=== PATIENT | male | born 1995 | race Caucasian/White ===

== ENCOUNTER 2021-07-15 16:34 | Emergency (ER) | payer BC, OTHER ==
[2021-07-15 16:47] VITALS: BP 128/79; PULSE 75; O2SAT 98
[2021-07-15] MEDS ORDERED: TORAdol 30 mg Injection IM ONE (16:51)
[2021-07-15] MEDS ORDERED: TORAdol 30 mg Injection ONE (16:54)
--- NOTE | 2021-07-15 16:57 | ERPHSYRPT ---
- History of Present Illness Source: patient Exam Limitations: no limitations Patient Subjective Stated Complaint: Pt c/o of toothache pain at his right lower wisdom tooth, states he had an abcsess there last year and was here for the same thing Triage Nursing Assessment: Pt brought self to the ER, vitals wnl, rates mouth pain as 10/24, pt states he was here last year for the same problem but did not have the tooth fixed or removed after the abscess went down, no redness seen, doesn't appear to be in any distress Physician History: 25 yo wm w dental pain x 3 days. Pt denies trauma/fever. Pt states that he had similar pain w impacter 3rd molar 1 year ago but did not f/u for extraction. Timing/Duration: days (3 days) Severity: mild ENT Location: dental Prearrival Treatment: over the counter meds Modifying Factors: Improves With: other (Chewing) Associated Symptoms: facial pain/swelling, jaw pain, tooth pain, No ear pain (R), No ear pain (L), No cough, No fever, No chills, No change in hearing, No dizziness, No drooling, No ear drainage, No headache, No hearing loss, No malaise, No motion sickness, No nasal congestion/drainage, No nasal foreign body, No neck pain, No poor fluid intake, No poor solids intake, No ringing of ears, No swollen glands, No sinus infection, No sore throat, No difficulty swallowing, No voice change Allergies/Adverse Reactions: amoxicillin Allergy (Verified 07/15/21 16:47) Hx Tetanus, Diphtheria Vaccination/Date Given: (unknown) Hx Influenza Vaccination/Date Given: No Hx Pneumococcal Vaccination/Date Given: No Travel Risk - International Travel Have you traveled outside of the country in past 3 weeks: No - Coronavirus Screening Are you exhibiting any of the following symptoms?: No Symptoms: Shortness of Breath Close contact with a COVID-19 positive Pt in past 14-21 Days: No - Vaccine Status Have you recieved a Covid-19 vaccination: No - Review of Systems Constitutional: No Symptoms Eyes: No Symptoms Ears, Nose, & Throat: No Symptoms, Mouth Pain, Mouth Swelling Respiratory: No Symptoms Cardiac: No Symptoms Abdominal/Gastrointestinal: No Symptoms Genitourinary Symptoms: No Symptoms Musculoskeletal: No Symptoms Skin: No Symptoms Neurological: No Symptoms Psychological: No Symptoms Endocrine: No Symptoms Hematologic/Lymphatic: No Symptoms Immunological/Allergic: No Symptoms - Past Medical History Pertinent Past Medical History: Yes Neurological History: Migraines - Past Surgical History Past Surgical History: No Other Surgical History: myringotomy tubes as. young child - Social History Smoking Status: Never smoker How long have you smoked: chews toba Exposure to second hand smoke: No Drug Use: none Patient Lives Alone: No Significant Family History: no pertinent family hx - Nursing Vital Signs Nursing Vital Signs: Initial Vital Signs Temperature 96.5 F 07/15/21 16:38 Pulse Rate 75 07/15/21 16:38 Blood Pressure 128/79 07/15/21 16:38 O2 Sat by Pulse Oximetry 98 07/15/21 16:38 Pain Scale Pain Intensity 8 WNL - Physical Exam General Appearance: no apparent distress Eye Exam: bilateral eye: normal inspection, PERRL, EOMI Ear Exam: bilateral ear: auricle normal, canal normal, TM normal Nasal Exam: normal inspection Throat Exam: pharynx normal, dental tenderness (R inferior 3rd molar impacted), moist mucus membranes, No excessive drooling, No foreign body, No mandibular swelling, No maxillary swelling, No pharynx swelling, No pharynx tenderness, No tongue swollen, No tonsillar exudate, No tonsillar swelling, No trismus, No uvula swelling, No voice changes Neck Exam: normal inspection Cardiovascular/Respiratory Exam: normal breath sounds, regular rate/rhythm, heart sounds normal Abdominal Exam: non-tender, soft Neurologic Exam: alert, oriented x 3, cooperative, equipment maintenance tech II-XII nml as tested, nor mal mood/affect, nml cerebellar function, nml station & gait, sensation nml, No motor deficits, No sensory deficit Skin Exam: normal color, warm, dry SpO2 Interpretation: normal SpO2: 98 O2 Delivery: Room Air - Course Nursing assessment & vital signs reviewed: Yes Ordered Tests: Medication Summary Discontinued Medications Generic Name Dose Route Start Last Admin Trade Name Freq PRN Reason Stop Dose Admin Ketorolac Tromethamine 60 mg 07/15/21 16:51 07/15/21 16:58 Ketorolac Tromethamine 30 Mg/Ml Inj IM 07/15/21 16:52 60 mg STAT ONE Administration Ketorolac Tromethamine Confirm 07/15/21 16:54 Ketorolac Tromethamine 30 Mg/Ml Inj Administered 07/15/21 16:55 Dose 60 mg .ROUTE .STK-MED ONE - Progress Progress: improved Progress Note: 07/15/21 16:56 60mg IM Toradol Counseled pt/family regarding: diagnosis, need for follow-up - Departure Departure Disposition: Home Clinical Impression: Impacted third molar tooth Condition: Stable Critical Care Time: No Referrals: ANTHONY FSIHER [Primary Care Provider] - Follow up/PCP as directed Instructions: Dental Pain (DC) Additional Instructions: Dentist/Oral surgeon MAURILIO for extraction Prescriptions: clindamycin HCL [Clindamycin HCl] 300 mg PO TID 7 Days #21 Etodolac 400 mg [Lodine 400 mg] 400 mg PO BID PRN #14 tablet PRN Reason: Pain
== END 2021-07-15 17:09 | disposition home or self-care (01) ==
LOC: ED 16:34
DX: K01.1 Impacted teeth (principal); K08.89 Other specified disorders of teeth and supporting structures
CPT/HCPCS: 96372; 99283; J1885